=== PATIENT | female | born 2000 | race African-American/Black ===

== ENCOUNTER 2024-04-08 12:56 | Emergency (ER) | payer MEDICAID ==
[~2024-04-08] VITALS: Ht 172.7 cm; Wt 72.6 kg
[2024-04-08] MEDS ORDERED: SULF1TAB48 PO (14:10)
[2024-04-08 14:46] VITALS: BP 121/65; O2SAT 99
== END 2024-04-08 14:49 | disposition home or self-care (01) ==
LOC: ER 12:56
DX: L02.416 Cutaneous abscess of left lower limb (principal); Z79.899 Other long term (current) drug therapy
CPT/HCPCS: A4606; A4663